=== PATIENT | female | born 1995 | race Caucasian/White ===

== ENCOUNTER 2021-10-27 22:20 | Emergency (ER) | payer OTHER ==
[2021-10-28] MEDS ORDERED: Ibuprofen 200 MG TAB ONE (00:11)
[2021-10-28] MEDS ORDERED: Ondansetron ODT 4 MG TAB ONE (00:11)
== END 2021-10-28 01:51 | disposition home or self-care (01) ==
LOC: CSHERS 22:20
DX: J10.1 Influenza due to other identified influenza virus with other respiratory manifestations (principal)
CPT/HCPCS: 71045; 87804; 93005; Q0162

== ENCOUNTER 2022-08-08 15:59 | Emergency (ER) | payer OTHER ==
[2022-08-08] MEDS ORDERED: Ondansetron PF 4 MG/2 ML Vial ONE (16:37)
[2022-08-08 16:59] LABS: #Eosinphils 0.7 10x3/uL (0.0-0.5); #Monocytes 0.6 10x3/uL (0.0-1.1); #Neutrophils 5.7 10x3/uL (1.5-8.4); %Basophils 0.4 % (0.0-2.0); %Eosinophils 8.5 % (0.0-6.0); %Lymphocytes 17.1 % (18.0-47.0); %Monocytes 7.1 % (0.0-10.0); %Neutrophils 66.8 % (40.0-75.0); Mean Corpuscular HGB CONC 32.7 g/dL (32.0-36.0); Mean Corpuscular Hemoglobin 28.3 pg (27.0-33.0); Mean Corpuscular Volume 86.5 fl (81.6-98.3); Mean Platelet Volume 10.9 fl (7.4-10.4); Platelet Count 302 10x3/uL (150-450); White Blood Cell (WBC) Count 8.6 10x3/uL (3.5-10.5)
[2022-08-08] MEDS ORDERED: Ketorolac Tromethamine 30 MG/ML VIAL ONE (17:03)
[2022-08-08 17:07] LABS: BHCG - Serum Negative (NEGATIVE); Pregs Control Background? CLEAR/WHITE (CLR/WHITE); Pregs Control Bar Appear? YES (CONTROL BAR)
[2022-08-08 17:14] LABS: ALT (SGPT) 31 U/L (8-55); AST (SGOT) 24 U/L (5-34); Albumin 4.9 g/dL (3.5-5.0); Alkaline Phosphatase 72 U/L (40-110); Anion Gap 17 mmol/L (10-20); BUN (Urea Nitrogen) 8 mg/dL (7.0-18.7); Bilirubin, Total 1.4 mg/dL (0.2-1.2); Calc. Creatinine Clearance 0 mL/min (70-130); Calcium 10.1 mg/dL (7.8-10.44); Carbon Dioxide 21 mmol/L (22-29); Chloride 106 mmol/L (98-107); Estimated GFR 114; Globulin 3.6 g/dL (2.4-3.5); Glucose 79 mg/dL (70-105); Lipase 17 U/L (8-78); Potassium 3.6 mmol/L (3.5-5.1); Protein, Total 8.5 g/dL (6.0-8.3); Sodium 140 mmol/L (136-145)
[2022-08-08] MEDS ORDERED: Metoclopramide HCl 10 MG/2 ML VIAL ONE (17:52)
[2022-08-08] MEDS ORDERED: diphenhydrAMINE 50 MG/ML VIAL ONE ×2 (17:52→18:05)
[2022-08-08 18:08] LABS: Bilirubin 1+ (Negative); Blood, Urine Negative (Negative); Clarity Hazy (Clear); Glucose, Urine (Dipstick) Normal (Negative); Ketone, Urine 50 mg/dL (Negative); Leukocyte 25 (Negative); Nitrite Negative (Negative); Protein, Urine (Dipstick) 30 mg/dl (Neg-Trace); Specific Gravity, Urine 1.015 (1.005-1.030)
[2022-08-08 18:21] LABS: Bacteria/HPF 2+ HPF (None Seen); CAUTI Indications for Culture Pelvic or flank pain; Mucous/LPF 4+ LPF (<2+); RBC/HPF 0-3 HPF (0-3)
[2022-08-08 18:22] LABS: WBC/HPF 0-3 HPF (0-3)
[2022-08-08 18:23] LABS: Urine Culture Reflex No No
== END 2022-08-08 19:47 | disposition home or self-care (01) ==
LOC: CSHERS 15:59
DX: K29.70 Gastritis, unspecified, without bleeding (principal)
CPT/HCPCS: 76705; 80053; 81001; 83690; 84703; 85025; 96361; 96365; 96375; J1200; J1885; J2405; J2765